=== PATIENT | female | born 1975 | race Caucasian/White ===

== ENCOUNTER → 2017-01-31 | Outpatient (CLI) | payer OTHER ==
[~2017-01-31] MED LIST: AMIT1TAB79 PO; CLON2TAB PO; IMIT25TA PO; LISI10TA PO; PERC5TAB12 PO; TIZA4CAP3 PO
[2017-01-31 08:58] LABS: HEMATOCRIT 38.8 % (35.0-46.0); MEAN CORPUSCULAR HEMOGLOBIN 30.1 PG (27.0-34.0); MEAN CORPUSCULAR HGB CONC 33.4 % (32.0-36.0); PLATELET COUNT 247 TH/MM3 (150-450); RED BLOOD COUNT 4.31 MIL/MM3 (4.00-5.30); RED CELL DISTRIBUTION WIDTH 12.8 % (11.6-17.2); REVIEW FLAG FINAL; WHITE BLOOD COUNT 6.1 TH/MM3 (4.0-11.0)
[2017-01-31 09:35] LABS: ANION GAP 7 MEQ/L (5-15); AST (GOT) 42 U/L (15-37); BICARBONATE 29.4 MEQ/L (21.0-32.0); BLOOD UREA NITROGEN 17 MG/DL (7-18); CHLORIDE 101 MEQ/L (98-107); GLOMERULAR FILTRATION RATE 72 ML/MIN (>89); GLUCOSE,FASTING 94 MG/DL (74-99); POTASSIUM 3.6 MEQ/L (3.5-5.1); SODIUM (NA) 137 MEQ/L (136-145)
[2017-01-31 09:47] LABS: ALKALINE PHOSPHATASE 99 U/L (45-117); ALT (GPT) 41 U/L (10-53); LDL CHOLESTEROL 89 MG/DL (0-99); TOTAL BILIRUBIN ADULT 0.4 MG/DL (0.2-1.0)
== END ==
LOC: CLAB 08:34
PROVIDERS: ATTEND Family Medicine
DX: Z00.00 Encounter for general adult medical examination without abnormal findings (principal)
CPT/HCPCS: 36415; 80053; 80061; 84443; 85027

== ENCOUNTER → 2017-11-26 | Outpatient (CLI) | payer OTHER ==
[~2017-11-26] MED LIST changes: -AMIT1TAB79 PO; +AMIT50TA3 PO; +CHLORHEXIDINE GLUCONATE 2 % 1 PACK (2 CLOTHS) TOPICAL PRN; +DEXTROSE 5% IN WATE 1000ML INJ 1,000 ML IV SCH; +LACTATED RINGER'S 1000 ML IV PRN; +METOPROLOL TARTRATE 25 MG TAB PO PRN; -PERC5TAB12 PO; +POVIDONE IODINE 5% (ANTISEPSIS KIT) 4 APPLICATIONS EACH NARE PRN; +PROPOFOL 200 MG/20 ML AMP IV ONE; +SODIUM CHLORID 0.9% 500 ML IV PRN
--- NOTE | 2017-11-26 14:04 | GIPROC ---
[facility] [address] [facility]. [facility] [place], [id number] COLONOSCOPY PROCEDURE REPORT EXAM DATE: 11/26/2017 PATIENT NAME: Zan Stokes MR #: [id number] BIRTHDATE: 1975 ENDOSCOPIST: Sherry Macias MD ORDER #: [id number] CERTIFIED TECHNICIAN SPECIALIST: Adolfo Kellogg and Clarisse Hurt STATUS: outpatient INDICATIONS: The patient is a 42 yr old female here for a colonoscopy due to rectal bleeding, screening. PROCEDURE PERFORMED: Total Colonoscopy, anoscopy with hemorrhoid ligation MEDICATIONS: See Anesthesia Record ESTIMATED BLOOD LOSS: None CONSENT: The patient understands the risks and benefits of the procedure and understands that these risks include, but are not limited to: sedation, allergic reaction, infection, perforation and/or bleeding. Alternative means of evaluation and treatment include, among others: physical exam, x-rays, and/or surgical intervention. The patient elects to proceed with this endoscopic procedure. DESCRIPTION OF PROCEDURE: checked for proper function. Hand hygiene and appropriate measures for infection prevention was taken. After the risks, benefits and alternatives of the procedure were thoroughly explained, Informed consent was verified, confirmed and timeout was successfully executed by the treatment team. A digital exam was performed. The endoscope was introduced through the anus and advanced to the cecum, which was identified by the appendiceal orifice, tri-radiate valve, and ileocecal valve. The prep quality was fair. The instrument was then slowly withdrawn as the colon was fully examined. There were no mucosal abnormalities noted with the cecum, ascending colon, transverse colon, descending colon, sigmoid, or rectum. The scope was then completely withdrawn from the patient and the procedure terminated. Anoscopy was then performed with placement of hemorrhoidal bands in 2 quadrants. ADVERSE EVENTS: There were no complications. WITHDRAWL TIME: DEGREE OF DIFFICULTY: IMPRESSIONS: Normal Colon RECOMMENDATIONS: followup office visit 6-8 weeks PATIENT CONDITION: Stable DISPOSITION: Home RECALL: Repeat colonoscopy 10 years Sherry Macias MD eSigned: Sherry Macias MD 11/26/2017 2:04 PM cc: Dr. Rutherford PATIENT NAME: Zan Stokes MR#: [id number]
[2017-11-26 14:37] VITALS: BP 112/72; PULSE 80; RESP 18; TEMP 98; O2SAT 98
== END ==
LOC: HSDC 11:30
PROVIDERS: ATTEND Colon & Rectal Surgery
DX: K64.0 First degree hemorrhoids (principal); K62.5 Hemorrhage of anus and rectum; K60.2 Anal fissure, unspecified; K59.00 Constipation, unspecified; I10 Essential (primary) hypertension; Z87.891 Personal history of nicotine dependence